=== PATIENT | male | born 1975 | race Caucasian/White ===

== ENCOUNTER 2017-09-09 13:12 | Emergency (ER) | payer OTHER ==
[~2017-09-09] VITALS: Ht 182.9 cm; Wt 95.5 kg
[2017-09-09 13:17] VITALS: BP 144/77; TEMP 98.4
[2017-09-09] MEDS ORDERED: ALBUTEROL1.25 MG/3 IH (13:19)
[2017-09-09 14:26] VITALS: PULSE 78
== END 2017-09-09 14:32 | disposition home or self-care (01) ==
LOC: COL.ER 13:12
DX: S63.91XA Sprain of unspecified part of right wrist and hand, initial encounter (principal); F17.210 Nicotine dependence, cigarettes, uncomplicated; Z98.890 Other specified postprocedural states; W19.XXXA Unspecified fall, initial encounter
CPT/HCPCS: Q4021

== ENCOUNTER → 2022-05-07 | Outpatient (CLI) | payer BC ==
[~2022-05-07] MED LIST: ALBUTEROL1.25 MG/3 IH
== END ==
LOC: MHCPAIN 09:57
DX: M47.892 Other spondylosis, cervical region (principal); M54.12 Radiculopathy, cervical region; G89.29 Other chronic pain
CPT/HCPCS: G0463

== ENCOUNTER → 2022-05-22 | Outpatient (CLI) | payer BC | LOC: MHCPAIN 08:45 | DX: M47.812 Spondylosis without myelopathy or radiculopathy, cervical region (principal); M54.12 Radiculopathy, cervical region | CPT/HCPCS: J1100; Q9967 ==

== ENCOUNTER → 2022-06-04 | Outpatient (CLI) | payer BC | LOC: MHCPAIN 12:35 | DX: M47.812 Spondylosis without myelopathy or radiculopathy, cervical region (principal); M54.2 Cervicalgia; M54.12 Radiculopathy, cervical region | CPT/HCPCS: G0463 ==

== ENCOUNTER → 2023-10-27 | Outpatient (CLI) | payer BC ==
[~2023-10-27] MED LIST changes: +ASPIRIN E.C. 8181 MG PO; +BRILINTA90 MG PO; +EPA FISH OIL1 SGL PO; +LIPITOR 80MG80 MG PO; +PEPCID 20MG TAB20 MG PO; +TOPROL XL 25MG25 MG PO
== END ==
LOC: COL.RAD 07:11
DX: S83.92XA Sprain of unspecified site of left knee, initial encounter (principal); M94.262 Chondromalacia, left knee